=== PATIENT | male | born 1940 | race Caucasian/White ===

== ENCOUNTER 2019-06-06 14:09 | Inpatient (IN) | payer MEDICARE, BC ==
[2019-06-06 15:46] LABS: BASOPHIL % 0.2 % (0.0-0.4); Basophil (Absolute #) 0.02 (0-0.4); Eosinophil % 0.4 % (0.00-5.0); Eosinophil (Absolute #) 0.04 (0-0.5); Granulocyte Absolute (ANC) 8.22 (1.4-6.9); Granulocytes % 81.3 % (36.0-66.0); Hematocrit 44.8 % (42-50); Hemoglobin 14.9 gm/dl (12.5-18.0); Lymphocyte (Absolute #) 0.97 (1.0-4.6); Lymphocytes % 9.6 % (24.0-44.0); Mean Cell Volume 100.4 fl (78-100); Mean Corpuscular Hemoglobin 33.4 pg (26-32); Mean Corpuscular Hgb Concent. 33.3 g/dl (32-36); Mean Platelet Volume 10.6 fl (6-9.5); Monocyte (Absolute #) 0.86 (0.0-1.3); Monocytes % 8.5 % (0.0-12.0); Platelet Count 188 K/mm3 (150-450); Red Blood Count 4.46 M/mm3 (4.1-5.6); Red Cell Distribution Width 13.4 % (11.5-14.0); White Blood Count 10.1 K/mm3 (4.0-10.5)
[2019-06-06 16:14] LABS: ALBUMIN 3.9 g/dL (3.5-5.0); BILIRUBIN,TOTAL 0.6 mg/dL (0.2-1.3); Calcium 9.7 mg/dL (8.4-10.2); Creatinine 1 1.55 mg/dL (0.66-1.25); Potassium 4.3 mmol/L (3.5-5.1); Total Protein 6.5 g/dL (6.3-8.2)
[2019-06-06] MEDS ORDERED: Unasyn 3GM / NaCl 100ML 3 GM/100 ML IVPB IV STA (16:44)
[2019-06-06] MEDS ORDERED: Sodium Chloride 0.9% 1000 ML 1,000 ML ONE (16:49)
[2019-06-06] MEDS ORDERED: Unasyn 3GM / NaCl 100ML 3 GM/100 ML IVPB ONE (16:49)
[2019-06-06] MEDS ORDERED: Sodium Chloride 0.9% 1000 ML 1,000 ML IV SCH (17:00)
--- NOTE | 2019-06-06 17:15 | ERPHSYRPT ---
- History of Present Illness Source: patient, family Exam Limitations: no limitations Patient Subjective Stated Complaint: Fell yesterday at home and laid there for 4 hours because he couldn't move and his cell phone was under him, bilateral sides of pelvis hurt, hx of bilateral hip replacements, hx of lower back surgery , back is bothering him today, went to the clinic last week and was diagnosed with bronchitis and he has been on Doxycycline since then but he states that he is feeling worse Triage Nursing Assessment: Wheezes in right lower lobe, swelling to left knee, rug burn to left knee, unproductive cough, pulses normal, rates pain 10/10 in back and pelvis Physician History: Pt is an 78 y/o male that fell yesterday at home, and was lying on his side, with his cell phone underneath him, till his son found him. The pt complains of pain in his hips, and pelvis, and his L knee. He is coughing, and wheezing, and at this point, he is not able to ambulate. Pt denies N/V?D or abdominal pain. No chest pain or palpitations. No F/C/S. Timing/Duration: yesterday Severity: moderate Modifying Factors: Improves With: immobilization, medication Associated Symptoms: cough Allergies/Adverse Reactions: No Known Drug Allergies Allergy (Verified 06/06/19 15:08) Home Medications: Carbidopa/Levodopa 25/100 mg [Sinemet 25/100 MG] 1 tab PO QID 06/06/19 [ History] Entacapone 200 mg PO QID 06/06/19 [History] Pramipexole Di-HCl 0.5 mg [Mirapex 0.5 MG Tablet] 0.5 mg PO TID 06/06/19 [ History] Simvastatin 20Mg [Zocor 20Mg] 20 mg PO DAILY 06/06/19 [History] Triamterene/Hydrochlorothiazid [Triamterene-Hctz 37.5-25 mg Tb] 1 each PO DAILY 06/06/19 [History] - Review of Systems Constitutional: Lethargy, Weakness Eyes: No Symptoms Ears, Nose, & Throat: No Symptoms Respiratory: Cough, Wheezing Cardiac: No Chest Pain, No Edema, No Syncope Abdominal/Gastrointestinal: No Abdominal Pain, No Nausea, No Vomiting, No Diarrhea Musculoskeletal: Back Pain, Joint Pain, Joint Swelling Skin: No Rash Neurological: Gait Changes - Past Medical History Pertinent Past Medical History: Yes Neurological History: Other Cardiac History: High Cholesterol, Hypertension Respiratory History: No Pertinent History Endocrine Medical History: No Pertinent History Musculoskeletal History: Osteoarthritis Other Medical History: B hip LOIS, back surgery, Neck surgery, Gallbladder surgery. - Past Surgical History Past Surgical History: Yes Gastrointestinal: Cholecystectomy Musculoskeletal: Joint Replacement, Orthopedic Surgery - Social History Smoking Status: Former smoker Exposure to second hand smoke: No Drug Use: none Patient Lives Alone: Yes - Nursing Vital Signs Nursing Vital Signs: Initial Vital Signs Temperature 98.5 F 06/06/19 14:55 Pulse Rate 77 06/06/19 14:55 Blood Pressure 127/89 06/06/19 14:55 O2 Sat by Pulse Oximetry 98 06/06/19 14:55 Pain Scale Pain Intensity 8 - Physical Exam General Appearance: moderate distress Eye Exam: PERRL/EOMI, eyes nml inspection Ears, Nose, Throat Exam: normal ENT inspection, TMs normal, pharynx normal, moist mucous membranes Neck Exam: normal inspection, non-tender, supple, full range of motion Respiratory Exam: wheezing Cardiovascular Exam: regular rate/rhythm, normal heart sounds, normal peripheral pulses Gastrointestinal/Abdomen Exam: soft, normal bowel sounds, No tenderness, No mass Extremity Exam: pelvis stable, joint swelling (L knee) Neurologic Exam: alert, oriented x 3, cooperative, normal mood/affect, nml cerebellar function, nml station & gait, sensation nml, No motor deficits SpO2 Interpretation: normal SpO2: 98 O2 Delivery: Room Air - Course Nursing assessment & vital signs reviewed: Yes - Radiology Exams Hip X-ray Interpretation: Teleradiologist Report (No acute osseous abnormality) Chest X-ray Interpretation: Teleradiologist Report (Minor opacity of the lingula, small developing infiltrate) Left Knee X-ray Interpretation: Teleradiologist Report (No acute osseous abnormality) Ordered Tests: Active Orders 24 hr Category Date Time Status IV Insertion STAT Care 06/06/19 16:59 Active CHEST 1 VIEW (PORTABLE) Stat Exams 06/06/19 15:16 Taken HIP JEREMY (4V) INCL PELV IF DONE Stat Exams 06/06/19 15:24 Ordered HIP UNI (2V) INCL PEL IF DONE Stat Exams 06/06/19 Ordered KNEE (3 VIEWS) Stat Exams 06/06/19 15:23 Taken PELVIS (1 OR 2 VIEWS) Stat Exams 06/06/19 15:23 Ordered BNP [NT PRO BNP] Stat Lab 06/06/19 15:43 Completed CBC W DIFF Stat Lab 06/06/19 15:43 Completed CK (IN-HOUSE) [CK-Creatinine Phosphokinase] Stat Lab 06/06/19 15:43 Completed CMP Stat Lab 06/06/19 15:43 Completed Medication Summary Generic Name Dose Route Start Last Admin Trade Name Freq PRN Reason Stop Dose Admin Ampicillin Sodium/Sulbactam Sodium 3 gm in 100 mls @ 200 mls/hr 06/06/19 16: 44 06/06/19 16:56 Unasyn 3gm / Nacl 100ml IV 06/06/19 17:13 200 ml/hr STAT STA 200 mls/hr Administration Sodium Chloride 1,000 mls @ 100 mls/hr 06/06/19 17:00 06/06/19 16:55 Sodium Chloride 0.9% 1000 Ml IV 07/06/19 16:59 100 mls/hr .Q10H ROLAND Administration Discontinued Medications Generic Name Dose Route Start Last Admin Trade Name Freq PRN Reason Stop Dose Admin Ampicillin Sodium/Sulbactam Sodium Confirm 06/06/19 16:49 Unasyn 3gm / Nacl 100ml Administered 06/06/19 16:50 Dose 3 gm in 100 mls @ ud .[facility]OUTE .[facility] Lab/Rad Data: Laboratory Result Diagrams 06/06/19 15:43 06/06/19 15:43 Laboratory Results 06/06/19 06/06/19 06/06/19 Range/Units 15:43 15:43 15:43 WBC 10.1 (4.0-10.5) K/mm3 RBC 4.46 (4.1-5.6) M/mm3 Hgb 14.9 (12.5-18.0) gm/dl Hct 44.8 (42-50) % MCV 100.4 H (78-100) fl MCH 33.4 H (26-32) pg MCHC 33.3 (32-36) g/dl RDW 13.4 (11.5-14.0) % Plt Count 188 (150-450) K/mm3 MPV 10.6 H (6-9.5) fl Gran % 81.3 H (36.0-66.0) % Eos # (Auto) 0.04 (0-0.5) Absolute Lymphs (auto) 0.97 L (1.0-4.6) Absolute Monos (auto) 0.86 (0.0-1.3) Lymphocytes % 9.6 L (24.0-44.0) % Monocytes % 8.5 (0.0-12.0) % Eosinophils % 0.4 (0.00-5.0) % Basophils % 0.2 (0.0-0.4) % Absolute Granulocytes 8.22 H (1.4-6.9) Basophils # 0.02 (0-0.4) Sodium 138 (137-145) mmol/L Potassium 4.3 (3.5-5.1) mmol/L Chloride 104 (98-107) mmol/L Carbon Dioxide 27 (22-30) mmol/L Anion Gap 11.0 (5-15) MEQ/L BUN 42 H (9-20) mg/dL Creatinine 1.55 H (0.66-1.25) mg/dL Estimated GFR 46.1 ML/MIN Glucose 91 (74-106) mg/dL Calcium 9.7 (8.4-10.2) mg/dL Total Bilirubin 0.60 (0.2-1.3) mg/dL AST 314 H (17-59) U/L ALT 8 (0-50) U/L Alkaline Phosphatase 109 (38-126) U/L Creatine Kinase 8865 H (55-170) U/L NT-Pro-B Natriuret Pep 230 (0-1800) pg/mL Serum Total Protein 6.5 (6.3-8.2) g/dL Albumin 3.9 (3.5-5.0) g/dL - Progress Progress: unchanged Progress Note: 06/06/19 17:18 Pt was seen and examined. He is very deconditioned and is not able to ambulate on his own. Pt developed Rhabdo while lying on the floor, and now his CK is elevated and his sCr is elevated as well. Pt was started on IVF at 100ml/hr, secondary to his age. On CXR pt has infiltrate, probably secondary to aspiration, and Unasyn was started. Dr Calderon was contacted, and she accepted pt for admission. Discussed with : Hernan Will see patient in: hospital (full admit) - Departure Departure Disposition: In-patient Admission Clinical Impression: Rhabdomyolysis Condition: Stable Critical Care Time: No Referrals: BECK DEAN MD [Primary Care Provider] - Additional Instructions: Pt will be admitted to the hospital, with Rhabdo and aspiration PNA, and MODE. Dr Calderon accepted.
[2019-06-06] MEDS ORDERED: DUONEB 0.5-3 MG/3 ml Neb IH PRN (17:23)
[2019-06-06] MEDS ORDERED: Zofran 4 MG/2 ML VIAL IV PRN (17:23)
[2019-06-06] MEDS ORDERED: ULTRAM 50 MG PO ONE (17:30)
[2019-06-06] MEDS ORDERED: ULTRAM 50 MG ONE (17:32)
[2019-06-06 18:57] LABS: Appearance CLEAR (CLEAR); Bilirubin NEGATIVE (NEGATIVE); Blood SMALL Ery/ul (0-5); Glucose NEGATIVE (NEGATIVE); Ketones NEGATIVE (NEGATIVE); Leukocyte Esterase NEGATIVE (NEGATIVE); Mucus SLIGHT /HPF (NEGATIVE); Nitrite NEGATIVE (NEGATIVE); Protein,Urine Dip NEGATIVE (Negative); Urobilinogen NEGATIVE mg/dL (0-1)
[2019-06-06] MEDS: Unasyn 3GM / NaCl 100ML 3 GM/100 ML IVPB IV SCH (19:32)
--- NOTE | 2019-06-06 19:33 | XRAY ---
Indication: Short of breath. Status post fall. Comparison: None Portable chest demonstrates cardiomegaly with tortuous descending aorta. Query lingula infiltrate versus atelectasis. Remaining lungs are clear. Bony thorax intact with mild degenerative changes in lower cervical fusion hardware. Impression: Cardiomegaly. Query lingula infiltrate versus atelectasis. Comment: Preliminary interpretation was made by [facility]. No discrepancy.
--- NOTE | 2019-06-06 19:35 | XRAY ---
Indication: Pain following fall. Comparison: None 3 views of the left knee demonstrates mild osteopenia, medial/lateral degenerative chondrocalcinosis, medial joint space narrowing, fabella, and vascular calcifications. No other bony, articular, or soft tissue abnormalities. Comment: Preliminary interpretation was made by [facility]. No discrepancy.
[2019-06-06] MEDS: ZOCOR 20MG PO SCH (22:24)
[2019-06-06] MEDS: Sinemet 25/100 MG PO SCH (22:25)
[2019-06-06] MEDS: Mirapex 0.5 MG Tablet PO SCH (22:25)
[2019-06-06] MEDS: Ambien 5 MG Tablet PO PRN (22:35)
[2019-06-06 23:02] LABS: ANION GAP 7.3 MEQ/L (5-15); Calcium 8.9 mg/dL (8.4-10.2); Creatinine 1 1.41 mg/dL (0.66-1.25); Potassium 3.7 mmol/L (3.5-5.1)
[2019-06-07] MEDS: Unasyn 3GM / NaCl 100ML 3 GM/100 ML IVPB IV SCH ×4 (01:25→18:24)
[2019-06-07] MEDS: Sodium Chloride 0.9% 1000 ML 1,000 ML IV SCH ×2 (01:26→10:30)
[2019-06-07 04:48] LABS: BASOPHIL % 0.1 % (0.0-0.4); Basophil (Absolute #) 0.01 (0-0.4); Eosinophil (Absolute #) 0.07 (0-0.5); Granulocyte Absolute (ANC) 5.24 (1.4-6.9); Granulocytes % 78.3 % (36.0-66.0); Hematocrit 42.9 % (42-50); Hemoglobin 14.3 gm/dl (12.5-18.0); Lymphocyte (Absolute #) 0.83 (1.0-4.6); Lymphocytes % 12.4 % (24.0-44.0); Mean Cell Volume 101.2 fl (78-100); Mean Corpuscular Hemoglobin 33.7 pg (26-32); Mean Corpuscular Hgb Concent. 33.3 g/dl (32-36); Mean Platelet Volume 10.9 fl (6-9.5); Monocyte (Absolute #) 0.55 (0.0-1.3); Monocytes % 8.2 % (0.0-12.0); Platelet Count 153 K/mm3 (150-450); Red Blood Count 4.24 M/mm3 (4.1-5.6); Red Cell Distribution Width 13.2 % (11.5-14.0); White Blood Count 6.7 K/mm3 (4.0-10.5)
[2019-06-07 05:07] LABS: ALBUMIN 3.4 g/dL (3.5-5.0); ANION GAP 8.3 MEQ/L (5-15); BILIRUBIN,TOTAL 0.6 mg/dL (0.2-1.3); Calcium 8.9 mg/dL (8.4-10.2); Creatinine 1 1.31 mg/dL (0.66-1.25); Potassium 3.8 mmol/L (3.5-5.1)
[2019-06-07 05:16] LABS: TROPONIN 0.065 ng/mL (0.000-0.034)
[2019-06-07] MEDS ORDERED: Unasyn 3GM / NaCl 100ML 3 GM/100 ML IVPB ONE (06:01)
[2019-06-07] MEDS: Mirapex 0.5 MG Tablet PO SCH ×3 (07:44→17:05)
[2019-06-07] MEDS: Sinemet 25/100 MG PO SCH ×4 (07:44→21:50)
[2019-06-07] MEDS: TYLENOL 325 MG PO PRN ×2 (07:47→12:11)
[2019-06-07] MEDS ORDERED: MEDICATION INTERVENTION PO SCH (08:15)
[2019-06-07] MEDS ORDERED: NON-FORMULARY ITEM (Multivitamin [Multi-Vitamin Daily] 1 EACH) PO SCH (10:00)
[2019-06-07] MEDS: PROTONIX 40 MG IV IV SCH (10:26)
[2019-06-07] MEDS: THERAGRAN MULTIVITAMIN PO SCH (10:26)
[2019-06-07] MEDS: ECOTRIN 81 MG PO SCH (10:29)
[2019-06-07] MEDS: ENOXAPARIN SODIUM SQ SCH (10:35)
--- NOTE | 2019-06-07 11:38 | PCM.NOTE ---
Date and Time: 06/07/19 1133 Subjective Assessment: Patient reports some continued pain in his legs and pelvis. He is not sure if he would be able to walk. He does feel better sitting up in a chair. He continues to have a cough. His son notes that he will be seeing Dr. Kamaljit Caro , industrial health engineer in July. - Review of Systems Constitutional: Fatigue Eyes: No Symptoms Ears, Nose, & Throat: No Symptoms Respiratory: Cough Cardiac: No Chest Pain Abdominal/Gastrointestinal: No Abdominal Pain Musculoskeletal: Myalgias Skin: Other (skin tear on left knee) Objective Exam General Appearance: no apparent distress, other (son at bedside) Neurologic Exam: alert, cooperative Skin Exam: normal color, warm, dry, other (dressing over scrape on left lower leg) Respiratory Exam: normal breath sounds, lungs clear, other (+ cough) Cardiovascular Exam: regular rate/rhythm, normal heart sounds, No murmur, No friction rub, No gallop Gastrointestinal/Abdomen Exam: soft, normal bowel sounds, No tenderness, No distention, No mass Extremity Exam: other (trace edema, no c/c) OBJECTIVE DATA Vital Signs: Vital Signs - 24 hr Temp Pulse Resp BP Pulse Ox 06/07/19 07:42 97.8 F 68 20 100/64 95 06/07/19 04:12 97.7 F 70 21 101/60 94 L 06/07/19 04:00 21 06/07/19 00:00 18 06/06/19 23:37 98.1 F 67 18 97/53 96 06/06/19 21:53 82 20 95 06/06/19 20:00 98.5 F 80 20 141/83 98 06/06/19 18:34 98.5 F 80 20 141/83 98 06/06/19 17:23 98 06/06/19 17:05 80 18 146/92 98 06/06/19 14:55 98.5 F 77 127/89 98 Pain Assessment - Last Documented Pain Intensity 0 Pain Scale Used 0-10 Pain Scale Intake and Output: Intake & Output 06/05/19 06/06/19 06/07/19 06/08/19 06:59 06:59 06:59 06:59 Intake Total 1407 360 Output Total 1175 300 Balance 232 60 Weight 84 kg Lab Results: Lab Results-Last 24 Hours 0806/06/19 06/06/19 Range/Units 15:43 15:43 15:43 WBC 10.1 (4.0-10.5) K/mm3 RBC 4.46 (4.1-5.6) M/mm3 Hgb 14.9 (12.5-18.0) gm/dl Hct 44.8 (42-50) % MCV 100.4 H (78-100) fl MCH 33.4 H (26-32) pg MCHC 33.3 (32-36) g/dl RDW 13.4 (11.5-14.0) % Plt Count 188 (150-450) K/mm3 MPV 10.6 H (6-9.5) fl Gran % 81.3 H (36.0-66.0) % Eos # (Auto) 0.04 (0-0.5) Absolute Lymphs (auto) 0.97 L (1.0-4.6) Absolute Monos (auto) 0.86 (0.0-1.3) Lymphocytes % 9.6 L (24.0-44.0) % Monocytes % 8.5 (0.0-12.0) % Eosinophils % 0.4 (0.00-5.0) % Basophils % 0.2 (0.0-0.4) % Absolute Granulocytes 8.22 H (1.4-6.9) Basophils # 0.02 (0-0.4) Sodium 138 (137-145) mmol/L Potassium 4.3 (3.5-5.1) mmol/L Chloride 104 (98-107) mmol/L Carbon Dioxide 27 (22-30) mmol/L Anion Gap 11.0 (5-15) MEQ/L BUN 42 H (9-20) mg/dL Creatinine 1.55 H (0.66-1.25) mg/dL Estimated GFR 46.1 ML/MIN Glucose 91 (74-106) mg/dL Calcium 9.7 (8.4-10.2) mg/dL Total Bilirubin 0.60 (0.2-1.3) mg/dL AST 314 H (17-59) U/L ALT 8 (0-50) U/L Alkaline Phosphatase 109 (38-126) U/L Creatine Kinase 8865 H (55-170) U/L Troponin I (0.000-0.034) ng/mL NT-Pro-B Natriuret Pep 230 (0-1800) pg/mL Serum Total Protein 6.5 (6.3-8.2) g/dL Albumin 3.9 (3.5-5.0) g/dL Urine Color (YELLOW) Urine Appearance (CLEAR) Urine pH (5-6) Ur Specific Boyle (1.005-1.025) Urine Protein (Negative) Urine Ketones (NEGATIVE) Urine Blood (0-5) Cristian/ul Urine Nitrite (NEGATIVE) Urine Bilirubin (NEGATIVE) Urine Urobilinogen (0-1) mg/dL Ur Leukocyte Esterase (NEGATIVE) Urine WBC (Auto) (0-5) /HPF Urine RBC (Auto) (0-2) /HPF U Epithel Cells (Auto) (FEW) /HPF Urine Bacteria (Auto) (NEGATIVE) /HPF Urine Mucus (Auto) (NEGATIVE) /HPF Urine Culture Reflexed (NO) Urine Glucose (NEGATIVE) mg/dL 06/06/19 06/06/19 06/06/19 Range/Units 17:43 20:30 21:40 WBC (4.0-10.5) K/mm3 RBC (4.1-5.6) M/mm3 Hgb (12.5-18.0) gm/dl Hct (42-50) % MCV (78-100) fl MCH (26-32) pg MCHC (32-36) g/dl RDW (11.5-14.0) % Plt Count (150-450) K/mm3 MPV (6-9.5) fl Gran % (36.0-66.0) % Eos # (Auto) (0-0.5) Absolute Lymphs (auto) (1.0-4.6) Absolute Monos (auto) (0.0-1.3) Lymphocytes % (24.0-44.0) % Monocytes % (0.0-12.0) % Eosinophils % (0.00-5.0) % Basophils % (0.0-0.4) % Absolute Granulocytes (1.4-6.9) Basophils # (0-0.4) Sodium 138 (137-145) mmol/L Potassium 3.7 (3.5-5.1) mmol/L Chloride 107 (98-107) mmol/L Carbon Dioxide 28 (22-30) mmol/L Anion Gap 7.3 (5-15) MEQ/L BUN 39 H (9-20) mg/dL Creatinine 1.41 H (0.66-1.25) mg/dL Estimated GFR 51.4 ML/MIN Glucose 99 (74-106) mg/dL Calcium 8.9 (8.4-10.2) mg/dL Total Bilirubin (0.2-1.3) mg/dL AST (17-59) U/L ALT (0-50) U/L Alkaline Phosphatase (38-126) U/L Creatine Kinase 5246 H (55-170) U/L Troponin I 0.085 H* (0.000-0.034) ng/mL NT-Pro-B Natriuret Pep (0-1800) pg/mL Serum Total Protein (6.3-8.2) g/dL Albumin (3.5-5.0) g/dL Urine Color YELLOW (YELLOW) Urine Appearance CLEAR (CLEAR) Urine pH 5.0 (5-6) Ur Specific Boyle 1.010 (1.005-1.025) Urine Protein NEGATIVE (Negative) Urine Ketones NEGATIVE (NEGATIVE) Urine Blood SMALL (0-5) Cristian/ul Urine Nitrite NEGATIVE (NEGATIVE) Urine Bilirubin NEGATIVE (NEGATIVE) Urine Urobilinogen NEGATIVE (0-1) mg/dL Ur Leukocyte Esterase NEGATIVE (NEGATIVE) Urine WBC (Auto) NONE (0-5) /HPF Urine RBC (Auto) NONE (0-2) /HPF U Epithel Cells (Auto) NONE (FEW) /HPF Urine Bacteria (Auto) NONE (NEGATIVE) /HPF Urine Mucus (Auto) SLIGHT (NEGATIVE) /HPF Urine Culture Reflexed NO (NO) Urine Glucose NEGATIVE (NEGATIVE) mg/dL 06/07/19 06/07/19 06/07/19 Range/Units 01:25 04:45 04:45 WBC 6.7 (4.0-10.5) K/mm3 RBC 4.24 (4.1-5.6) M/mm3 Hgb 14.3 (12.5-18.0) gm/dl Hct 42.9 (42-50) % MCV 101.2 H (78-100) fl MCH 33.7 H (26-32) pg MCHC 33.3 (32-36) g/dl RDW 13.2 (11.5-14.0) % Plt Count 153 (150-450) K/mm3 MPV 10.9 H (6-9.5) fl Gran % 78.3 H (36.0-66.0) % Eos # (Auto) 0.07 (0-0.5) Absolute Lymphs (auto) 0.83 L (1.0-4.6) Absolute Monos (auto) 0.55 (0.0-1.3) Lymphocytes % 12.4 L (24.0-44.0) % Monocytes % 8.2 (0.0-12.0) % Eosinophils % 1.0 (0.00-5.0) % Basophils % 0.1 (0.0-0.4) % Absolute Granulocytes 5.24 (1.4-6.9) Basophils # 0.01 (0-0.4) Sodium 139 (137-145) mmol/L Potassium 3.8 (3.5-5.1) mmol/L Chloride 108 H (98-107) mmol/L Carbon Dioxide 27 (22-30) mmol/L Anion Gap 8.3 (5-15) MEQ/L BUN 34 H (9-20) mg/dL Creatinine 1.31 H (0.66-1.25) mg/dL Estimated GFR 56.0 ML/MIN Glucose 84 (74-106) mg/dL Calcium 8.9 (8.4-10.2) mg/dL Total Bilirubin 0.60 (0.2-1.3) mg/dL AST 216 H (17-59) U/L ALT 9 (0-50) U/L Alkaline Phosphatase 88 (38-126) U/L Creatine Kinase 2928 H (55-170) U/L Troponin I 0.070 H* 0.065 H* (0.000-0.034) ng/mL NT-Pro-B Natriuret Pep (0-1800) pg/mL Serum Total Protein 6.0 L (6.3-8.2) g/dL Albumin 3.4 L (3.5-5.0) g/dL Urine Color (YELLOW) Urine Appearance (CLEAR) Urine pH (5-6) Ur Specific Boyle (1.005-1.025) Urine Protein (Negative) Urine Ketones (NEGATIVE) Urine Blood (0-5) Cristian/ul Urine Nitrite (NEGATIVE) Urine Bilirubin (NEGATIVE) Urine Urobilinogen (0-1) mg/dL Ur Leukocyte Esterase (NEGATIVE) Urine WBC (Auto) (0-5) /HPF Urine RBC (Auto) (0-2) /HPF U Epithel Cells (Auto) (FEW) /HPF Urine Bacteria (Auto) (NEGATIVE) /HPF Urine Mucus (Auto) (NEGATIVE) /HPF Urine Culture Reflexed (NO) Urine Glucose (NEGATIVE) mg/dL Radiology Exams: Radiology Procedures Category Date Time Status CHEST 1 VIEW (PORTABLE) Stat Exams 06/06/19 15:16 Completed HIP JEREMY (4V) INCL PELV IF DONE Stat Exams 06/06/19 15:24 Taken KNEE (3 VIEWS) Stat Exams 06/06/19 15:23 Completed Assessment/Plan (1) Rhabdomyolysis Current Visit: Yes Status: Acute Assessment & Plan: CPK is improving. Will continue IV fluids but decrease to 100 mL hour at this time. Will ask for PT consult for pain and gait instability. Recheck CPK in AM. Code(s): M62.82 - RHABDOMYOLYSIS (2) Elevated troponin Current Visit: Yes Status: Acute Assessment & Plan: The peak was the first troponin that was checked. No chest pain now. Discussed with Dr. Davis who is covering for patient's bird keeper who is Dr. Archibald. He thinks this is most likely due to demand ischemia because of the Rhabdo. He suggests a tele cardiology consult if patient is still her Saturday or to follow up with Dr. rAchibald as an outpatient very soon if he is discharged tomorrow. He will need a full cardiac work up once he is stable. He did not think more troponins need to be checked as peak has been documented. Continue daily aspirin. Code(s): R74.8 - ABNORMAL LEVELS OF OTHER SERUM ENZYMES (3) Pneumonia Current Visit: Yes Status: Acute Assessment & Plan: Continue with IV antibiotics. Code(s): J18.9 - PNEUMONIA, UNSPECIFIED ORGANISM (4) Acute kidney injury Current Visit: Yes Status: Acute Assessment & Plan: Creatinine has improved slightly. Continue to monitor. Code(s): N17.9 - ACUTE KIDNEY FAILURE, UNSPECIFIED (5) Parkinson disease Current Visit: Yes Status: Acute Assessment & Plan: Continue home medication. He sees Dr. Ruthie Brown as outpatient. Code(s): G20 - PARKINSON'S DISEASE (6) Hypertension Current Visit: Yes Status: Acute Assessment & Plan: Currently holding his antihypertensives due to low normal blood pressure. Code(s): I10 - ESSENTIAL (PRIMARY) HYPERTENSION (7) Hyperlipidemia Current Visit: Yes Status: Acute Assessment & Plan: Continue statin. Code(s): E78.5 - HYPERLIPIDEMIA, UNSPECIFIED (8) Skin tear of left lower leg without complication Current Visit: Yes Status: Acute Code(s): S81.812A - LACERATION WITHOUT FOREIGN BODY, LEFT LOWER LEG, INIT ENCNTR (9) Gait instability Current Visit: Yes Status: Acute Assessment & Plan: PT consult. Code(s): R26.81 - UNSTEADINESS ON FEET
[2019-06-07] MEDS: ZOCOR 20MG PO SCH (21:50)
[2019-06-07] MEDS: Ambien 5 MG Tablet PO PRN (21:52)
[2019-06-08] MEDS: Unasyn 3GM / NaCl 100ML 3 GM/100 ML IVPB IV SCH ×4 (02:56→16:37)
[2019-06-08] MEDS: MORPHINE SULFATE 2 MG INJ IV PRN ×4 (03:52→21:37)
[2019-06-08 06:02] LABS: ANION GAP 8.6 MEQ/L (5-15); BLOOD UREA NITROGEN 25 mg/dL (9-20); CHLORIDE 110 mmol/L (98-107); CK-Creatinine Phosphokinase 1097 U/L (55-170); Calcium 9.2 mg/dL (8.4-10.2); Carbon Dioxide 27 mmol/L (22-30); Glucose 84 mg/dL (74-106); SODIUM 142 mmol/L (137-145)
[2019-06-08] MEDS: THERAGRAN MULTIVITAMIN PO SCH (08:23)
[2019-06-08] MEDS: Sinemet 25/100 MG PO SCH ×4 (08:23→21:39)
[2019-06-08] MEDS: Mirapex 0.5 MG Tablet PO SCH ×3 (08:23→16:37)
[2019-06-08] MEDS: ECOTRIN 81 MG PO SCH (08:23)
[2019-06-08] MEDS: PROTONIX 40 MG IV IV SCH (08:26)
[2019-06-08] MEDS: ENOXAPARIN SODIUM SQ SCH (08:29)
--- NOTE | 2019-06-08 12:29 | PCM.NOTE ---
Date and Time: 06/08/19 1219 Subjective Assessment: Patient is up in chair . Daughter in law at the bedside. Patient states he used the rollater to get to the bathroom with nurse along side. Is painful to move hips while walking.Is in pain across low back/hips sitting also and when in bed. 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 Dtr in law assures him the yards are taken care of. Discussed Rehab to prevent further falls. He says he will talk to Dr Calderon tomorrow about this. Objective Exam General Appearance: mild distress (not comfortable sitting -needs pillow or donut) Neurologic Exam: alert, oriented x 3 Skin Exam: normal color, warm, dry, abrasion (left knee denuded skin large area , dressed with telfa some odor and small amount light yellow discharge) Cardiovascular Exam: edema (trace pitting pretibial,no calf tenderness), other ( distant heart sounds regular) Back Exam: other (HIP and Left Knee xray -no acute fracture or dislocation.) OBJECTIVE DATA Vital Signs: Vital Signs - 24 hr Temp Pulse Resp BP Pulse Ox 06/08/19 11:53 98.4 F 76 20 123/72 96 06/08/19 08:00 98.2 F 72 20 145/78 96 06/08/19 04:00 98.5 F 72 20 134/84 96 06/08/19 03:50 20 06/08/19 00:00 20 06/07/19 23:51 98.7 F 57 L 20 123/54 96 06/07/19 21:04 67 16 92 L 06/07/19 20:00 20 06/07/19 19:48 98.4 F 68 16 111/53 95 06/07/19 16:00 98 F 74 20 102/60 96 06/07/19 12:21 98.2 F 68 20 101/58 95 Pain Assessment - Last Documented Pain Intensity 9 Pain Scale Used 0-10 Pain Scale Intake and Output: Intake & Output 06/06/19 06/07/19 06/08/19 06/09/19 11:59 11:59 11:59 11:59 Intake Total 1651 0222 Output Total 7247 0450 Balance 292 -2038 Weight 84 kg Lab Results: Lab Results-Last 24 Hours 06/08/19 Range/Units 05:20 Sodium 142 (137-145) mmol/L Potassium 4.0 (3.5-5.1) mmol/L Chloride 110 H (98-107) mmol/L Carbon Dioxide 27 (22-30) mmol/L Anion Gap 8.6 (5-15) MEQ/L BUN 25 H (9-20) mg/dL Creatinine 1.10 (0.66-1.25) mg/dL Estimated GFR > 60.0 ML/MIN Glucose 84 (74-106) mg/dL Calcium 9.2 (8.4-10.2) mg/dL Creatine Kinase 1097 H (55-170) U/L Radiology Exams: Radiology Procedures Category Date Time Status CHEST 1 VIEW (PORTABLE) Stat Exams 06/06/19 15:16 Completed HIP JEREMY (4V) INCL PELV IF DONE Stat Exams 06/06/19 15:24 Taken KNEE (3 VIEWS) Stat Exams 06/06/19 15:23 Completed Multi-Disciplinary Progress Notes: Multi-Disciplinary Progress Notes 06/08/19 09:26 Case Management Note by Daja Chung VISITED WITH PT AND SON REGARDING NEEDS ON DISCHARGE. PT/SON REPORT THAT PT IS STILL DRIVING - USES WALKER TO AMBULATE - NORMALLY INDEPENDENT WITH ALL ADL'S. PT HAS PARKINSON'S, HAVING PAIN FROM FALL, AND IS WEAK. DISCUSSED DISCHARGE OPTIONS: HOME WITH HHC SERVICES VS SNF REHAB STAY ON DISCHARGE. PT IS RELUCTANT TO EITHER. ENCOURAGED TO TALK WITH SON. DISCUSSED THAT THIS [employer]ONRY INSTALLER WOULD VISIT WITH PT AGAIN TOMORROW. Initialized on 06/08/19 09:26 - END OF NOTE Assessment/Plan (1) Hip pain, bilateral Current Visit: Yes Status: Acute Assessment & Plan: S?P remote hip replacements with acute pain due to fall-xrays neg for acute changes Code(s): M25.551 - PAIN IN RIGHT HIP; M25.552 - PAIN IN LEFT HIP (2) Rhabdomyolysis Current Visit: Yes Status: Acute Code(s): M62.82 - RHABDOMYOLYSIS (3) Acute kidney injury Current Visit: Yes Status: Acute Assessment & Plan: labs improving Code(s): N17.9 - ACUTE KIDNEY FAILURE, UNSPECIFIED (4) Rhabdomyolysis Current Visit: Yes Status: Acute Qualifiers: Rhabdomyolysis type: traumatic Encounter type: subsequent encounter Qualified Code(s): T79.6XXD - Traumatic ischemia of muscle, subsequent encounter Assessment & Plan: improving CK was 5000+ on admission ,today 1000+ Code(s): M62.82 - RHABDOMYOLYSIS (5) Abrasion, left knee, subsequent encounter Current Visit: Yes Status: Acute Assessment & Plan: odor today with light discharge-do culture sens and wound care daily Code(s): S80.212D - ABRASION, LEFT KNEE, SUBSEQUENT ENCOUNTER (6) Hip pain, bilateral Current Visit: Yes Status: Acute Assessment & Plan: trouble getting comfortable - try air flow mattress,reeval pain meds-was past due for his prn IV morphine-continue same but offer q 4 H. Code(s): M25.551 - PAIN IN RIGHT HIP; M25.552 - PAIN IN LEFT HIP
[2019-06-08] MEDS: DUONEB 0.5-3 MG/3 ml Neb IH SCH ×3 (14:04→19:55)
[2019-06-08] MEDS ORDERED: UNASYN IV SCH (18:00)
[2019-06-08] MEDS ORDERED: SODIUM CHLORIDE 0.9% IV SCH (18:00)
[2019-06-08] MEDS: Sodium Chloride 0.9% 1000 ML 1,000 ML IV SCH (19:27)
[2019-06-08] MEDS: Bactroban OINTMENT TP SCH (21:38)
[2019-06-08] MEDS: ZOCOR 20MG PO SCH (21:39)
[2019-06-09] MEDS: Unasyn 3GM / NaCl 100ML 3 GM/100 ML IVPB IV SCH ×4 (00:38→17:42)
[2019-06-09] MEDS: MORPHINE SULFATE 2 MG INJ IV PRN ×2 (03:32→08:07)
[2019-06-09 05:39] LABS: ANION GAP 8.8 MEQ/L (5-15); BLOOD UREA NITROGEN 21 mg/dL (9-20); CHLORIDE 113 mmol/L (98-107); CK-Creatinine Phosphokinase 494 U/L (55-170); Calcium 8.8 mg/dL (8.4-10.2); Carbon Dioxide 26 mmol/L (22-30); Creatinine 1 1.04 mg/dL (0.66-1.25); Glucose 88 mg/dL (74-106); Potassium 4.1 mmol/L (3.5-5.1); SODIUM 143 mmol/L (137-145)
[2019-06-09] MEDS: DUONEB 0.5-3 MG/3 ml Neb IH SCH ×3 (05:53→20:20)
[2019-06-09] MEDS: Tessalon Perles 100 MG PO PRN ×2 (07:39→16:31)
[2019-06-09] MEDS: PROTONIX 40 MG IV IV SCH ×2 (07:39→11:48)
[2019-06-09] MEDS: ENOXAPARIN SODIUM SQ SCH (07:39)
[2019-06-09] MEDS: Sinemet 25/100 MG PO SCH ×5 (07:40→21:43)
[2019-06-09] MEDS: Bactroban OINTMENT TP SCH (07:40)
[2019-06-09] MEDS: ECOTRIN 81 MG PO SCH (07:40)
[2019-06-09] MEDS: THERAGRAN MULTIVITAMIN PO SCH (07:40)
[2019-06-09] MEDS: Mirapex 0.5 MG Tablet PO SCH ×4 (07:40→16:32)
--- NOTE | 2019-06-09 07:50 | HP ---
HISTORY OF PRESENT ILLNESS: This is an 78 year-old patient of Dr. Wright who presented to the emergency department with a history of a fall yesterday. He states he tripped over a chair. He has a rug burn on his left knee. He reports that he landed with his right leg stretched out with his head leaning on the bed and was in that position for about four hours yesterday. He had been seen at [facility] last week for bronchitis and started on doxycycline 100 mg p.o. b.i.d. which he had been taking. He decided to come to the emergency room today as he reports he is having more trouble breathing and also because he was having some pain in his hips and pelvic area. He also reports that today he had some chest pain. He is unsure exactly how long it lasted. It was worse when he was lying on his side. He had some dyspnea with this. He has no history of coronary artery disease but does see Dr. Archibald. Also, no history of congestive heart failure. He reports he is urinating okay and denies any hematuria. REVIEW OF SYSTEMS: No nausea or vomiting. He has had a dry cough and fever yesterday with chills. No constipation. No diarrhea. Otherwise review of systems as noted in history of present illness. MEDICATIONS: Please see the home medication reconciliation form which I have reviewed. ALLERGIES: NKDA. PAST MEDICAL HISTORY: Parkinson's. Rheumatoid arthritis. Hypertension. Hyperlipidemia. PAST SURGICAL HISTORY: He had five hip replacements. He had one hip replacement and then bilateral hip replacement and after an accident had to have repeat hip replacements. He reports two hernia surgeries, back surgery and surgery for pinched nerve in his neck. SOCIAL HISTORY: He lives alone. He has family that lives nearby and checks on him frequently. No tobacco. No alcohol. FAMILY HISTORY: His father is and when he was 84. His mother is and had diabetes. PHYSICAL EXAMINATION: VITAL SIGNS: Temperature current 98.5F, temperature max 98.5F, heart rate 80, respiratory rate 20, blood pressure 141/83, weight 84.4 kg. Oxygen saturation 98% on room air. GENERAL: The patient is a pleasant talkative man with a mask-like facies lying in bed in no acute distress with his son, [id number] and grandson at the bedside. CVS: He has a regular rate and rhythm. No murmurs, gallops or rubs are appreciated. CHEST: He has a cough with deep breath. No crackles or wheezes are appreciated. No tachypnea. No retractions. ABDOMEN: Soft, nontender, nondistended with normal bowel sounds. EXTREMITIES: He has approximately 6 x 7 cm rug burn on his left knee. No clubbing or cyanosis. Trace edema in his lower extremities. I am unable to palpate dorsalis pedis or posterior tibial pulses bilaterally. He has good capillary refill. LABORATORY DATA AND TESTS: He was found to have a CPK of 8,865 in the emergency room. AST 214, creatinine 1.5. UA was small blood otherwise negative. He had multiple x-rays of his pelvis, knee, hip and chest that were all read as normal except for his chest read as cardiomegaly and questionable lingular infiltrate versus atelectasis. ASSESSMENT AND PLAN: 1) RHABDOMYOLYSIS: He has been started on fluids at 100 ml/hour. I have increased this to 125. I will be rechecking his CPK at 2100 hours tonight and will plan to recheck again in the morning also. 2) CHEST PAIN: I am going to check the troponin and then the troponin every four hours for a total of three. 3) PNEUMONIA: He has been started on Unasyn, will plan to continue with this and try to check a sputum culture. 4) ACUTE KIDNEY INJURY: Most likely due to the immobilization, will plan to recheck his creatinine in the morning. 5) PARKINSON'S: Will continue his home medications. 6) HYPERTENSION: I am holding his Maxzide but will continue his Toprol. 7) HYPERLIPIDEMIA: Will continue his statin. 8) SKIN TEAR: Will ask nursing to place a dressing on this.
--- NOTE | 2019-06-09 08:32 | PCM.NOTE ---
Date and Time: 06/09/19826 Subjective Assessment: Patient is aggravated about the timing of his Parkinson's medications. Head pharmacist, Jose, came in and discussed medications and reason for needing verification and patient and son's questions answered. Patient continues to have a cough and has trouble getting anything up with this cough. He has not had a stool since admit and states that it will come. He is reluctant but then agreeable to trying oral pain medication. He thinks a fall button would be a waste of money but will discuss further with his son. He is agreeable to home health but does not want to go to senior care for rehab. - Review of Systems Constitutional: Other (tremor; sleepy after parkinson's medication; hoarse voice , cough) Respiratory: Cough Abdominal/Gastrointestinal: Constipation, No Nausea, No Vomiting, No Diarrhea Genitourinary Symptoms: No Symptoms Musculoskeletal: Other (hip and pelvic pain) Objective Exam General Appearance: no apparent distress, alert, other (son at bed; resting tremor of left hand) Neurologic Exam: alert, cooperative, other (frustrated with medication situation ) Skin Exam: normal color, warm, other (bandage in place over left upper leg) Respiratory Exam: normal breath sounds, other (few rhonchi and cough with deep breath) Cardiovascular Exam: regular rate/rhythm, No murmur, No friction rub, No gallop Gastrointestinal/Abdomen Exam: soft, normal bowel sounds, distention, No tenderness, No mass, No guarding Extremity Exam: normal inspection, other (trace edema, no c/c) OBJECTIVE DATA Vital Signs: Vital Signs - 24 hr Temp Pulse Resp BP Pulse Ox 06/09/19 07:39 98.3 F 75 18 132/87 93 L 06/09/19 06:18 74 20 94 L 06/09/19 04:30 20 06/09/19 03:53 78 20 163/93 90 L 06/09/19 00:00 20 06/08/19 23:27 98.6 F 74 20 123/72 95 06/08/19 20:30 20 06/08/19 20:00 98.6 F 66 20 106/56 93 L 06/08/19 19:59 70 16 94 L 06/08/19 16:00 97.7 F 74 18 109/68 96 06/08/19 14:17 80 18 96 06/08/19 12:00 18 09/02/19 11:53 98.4 F 76 20 123/72 96 Pain Assessment - Last Documented Pain Intensity 10 Pain Scale Used 0-10 Pain Scale Intake and Output: Intake & Output 06/07/19 06/08/19 06/09/19 06/10/19 06:59 06:59 06:59 06:59 Intake Total 1407 1512 1620 Output Total 1175 3500 950 850 Balance 670 -850 Weight 84 kg 85.1 kg 85 kg Lab Results: Lab Results-Last 24 Hours 06/09/19 Range/Units 04:25 Sodium 143 (137-145) mmol/L Potassium 4.1 (3.5-5.1) mmol/L Chloride 113 H (98-107) mmol/L Carbon Dioxide 26 (22-30) mmol/L Anion Gap 8.8 (5-15) MEQ/L BUN 21 H (9-20) mg/dL Creatinine 1.04 (0.66-1.25) mg/dL Estimated GFR > 60.0 ML/MIN Glucose 88 (74-106) mg/dL Calcium 8.8 (8.4-10.2) mg/dL Creatine Kinase 494 H (55-170) U/L Multi-Disciplinary Progress Notes: Multi-Disciplinary Progress Notes 06/08/19 09:26 Case Management Note by Daja Chung VISITED WITH PT AND SON REGARDING NEEDS ON DISCHARGE. PT/SON REPORT THAT PT IS STILL DRIVING - USES WALKER TO AMBULATE - NORMALLY INDEPENDENT WITH ALL ADL'S. PT HAS PARKINSON'S, HAVING PAIN FROM FALL, AND IS WEAK. DISCUSSED DISCHARGE OPTIONS: HOME WITH C SERVICES VS SNF REHAB STAY ON DISCHARGE. PT IS RELUCTANT TO EITHER. ENCOURAGED TO TALK WITH SON. DISCUSSED THAT THIS IN SERVICE COORDINATOR WOULD VISIT WITH PT AGAIN TOMORROW. Initialized on 06/08/19 09:26 - END OF NOTE Assessment/Plan (1) Rhabdomyolysis Current Visit: Yes Status: Acute Qualifiers: Rhabdomyolysis type: traumatic Encounter type: subsequent encounter Qualified Code(s): T79.6XXD - Traumatic ischemia of muscle, subsequent encounter Assessment & Plan: Continue IV fluids, CPK continues to come down. Will recheck in AM. May be ready for discharge to home tomorrow if CPK is within normal limits. Code(s): M62.82 - RHABDOMYOLYSIS (2) Elevated troponin Current Visit: Yes Status: Acute Assessment & Plan: Will ask for tele cardiology consult today. I had also discussed his elevated troponin over the weekend with police inspector. Continue aspirin. Will need full work up as outpatient also through police inspector. Code(s): R74.8 - ABNORMAL LEVELS OF OTHER SERUM ENZYMES (3) Pneumonia Current Visit: Yes Status: Acute Assessment & Plan: Continue Unasyn; seems to be slowly improving. Code(s): J18.9 - PNEUMONIA, UNSPECIFIED ORGANISM (4) Acute kidney injury Current Visit: Yes Status: Resolved Assessment & Plan: resolved with IV fluids. Code(s): N17.9 - ACUTE KIDNEY FAILURE, UNSPECIFIED (5) Parkinson disease Current Visit: Yes Status: Acute Assessment & Plan: Continue home medication. Code(s): G20 - PARKINSON'S DISEASE (6) Hypertension Current Visit: Yes Status: Acute Code(s): I10 - ESSENTIAL (PRIMARY) HYPERTENSION (7) Hyperlipidemia Current Visit: Yes Status: Acute Assessment & Plan: Continue home medication. Code(s): E78.5 - HYPERLIPIDEMIA, UNSPECIFIED (8) Skin tear of left lower leg without complication Current Visit: Yes Status: Acute Assessment & Plan: Continue wound care; culture ordered yesterday by Dr. Richmond. Code(s): S81.812A - LACERATION WITHOUT FOREIGN BODY, LEFT LOWER LEG, INIT ENCNTR (9) Gait instability Current Visit: Yes Status: Acute Assessment & Plan: PT consult ordered Saturday. Would benefit from home health as he does not want rehab stay. Code(s): R26.81 - UNSTEADINESS ON FEET (10) Hypertension Current Visit: Yes Status: Acute Assessment & Plan: His blood pressure medication has been held due to low normal blood pressure. He may need a bp med started as he continues to improve from acute illness. Code(s): I10 - ESSENTIAL (PRIMARY) HYPERTENSION
--- NOTE | 2019-06-09 08:56 | XRAY ---
Indication: Pain following fall. Comparison: None AP pelvis and 2 views of the left hip demonstrates osteopenia, moderate low lumbar degenerative spondylosis, pelvic surgical clips/phleboliths, and bilateral total hip arthroplasty with intact bipolar prosthesis/acetabular screws and heterotopic ossifications. No other bony, articular, or soft tissue abnormalities. Comment: Preliminary interpretation was made by [facility]. No critical discrepancy.
[2019-06-09] MEDS ORDERED: Bactroban OINTMENT TP SCH (10:00)
[2019-06-09] MEDS ORDERED: PATIENT OWN MEDICATION PO SCH (10:00)
[2019-06-09] MEDS: Colace 100 MG PO SCH ×2 (11:46→21:43)
[2019-06-09] MEDS: SENOKOT 8.6 MG PO PRN (11:46)
[2019-06-09] MEDS: PATIENT OWN MEDICATION PO SCH ×4 (11:48→21:43)
[2019-06-09] MEDS: NORCO 5/325 MG PO PRN ×2 (16:31→21:41)
[2019-06-09] MEDS: ZOCOR 20MG PO SCH (21:43)
[2019-06-10] MEDS: Unasyn 3GM / NaCl 100ML 3 GM/100 ML IVPB IV SCH ×2 (00:20→05:44)
[2019-06-10] MEDS: NORCO 5/325 MG PO PRN ×2 (02:17→08:30)
[2019-06-10 06:08] LABS: Hemoglobin 15.1 gm/dl (12.5-18.0); Mean Cell Volume 102.2 fl (78-100); Mean Corpuscular Hemoglobin 33.6 pg (26-32); Mean Corpuscular Hgb Concent. 32.8 g/dl (32-36); Mean Platelet Volume 11.1 fl (6-9.5); Platelet Count 152 K/mm3 (150-450); Red Cell Distribution Width 13.4 % (11.5-14.0); White Blood Count 7.3 K/mm3 (4.0-10.5)
[2019-06-10 06:18] LABS: ANION GAP 9.2 MEQ/L (5-15); BLOOD UREA NITROGEN 22 mg/dL (9-20); CHLORIDE 111 mmol/L (98-107); CK-Creatinine Phosphokinase 337 U/L (55-170); Calcium 9.4 mg/dL (8.4-10.2); Carbon Dioxide 27 mmol/L (22-30); Creatinine 1 1.05 mg/dL (0.66-1.25); Glucose 90 mg/dL (74-106); Potassium 4.3 mmol/L (3.5-5.1); SODIUM 142 mmol/L (137-145)
[2019-06-10 06:55] LABS: Lymphocytes 18 % (24-44); Monocyte 1 % (0.0-12.0); Neutrophils 81 % (36.-66.); Platelet Estimate NORMAL (NORMAL); Total Cells Counted 100
[2019-06-10] MEDS ORDERED: ENOXAPARIN SODIUM SQ SCH (07:30)
[2019-06-10] MEDS ORDERED: ECOTRIN 81 MG PO SCH (07:30)
[2019-06-10] MEDS ORDERED: THERAGRAN MULTIVITAMIN PO SCH (07:30)
[2019-06-10] MEDS: Tessalon Perles 100 MG PO PRN (08:23)
[2019-06-10] MEDS: Colace 100 MG PO SCH (08:23)
[2019-06-10] MEDS: SENOKOT 8.6 MG PO PRN (08:23)
[2019-06-10] MEDS: Mirapex 0.5 MG Tablet PO SCH (08:24)
[2019-06-10] MEDS: PATIENT OWN MEDICATION PO SCH (08:25)
[2019-06-10] MEDS: PROTONIX 40 MG IV IV SCH (08:28)
[2019-06-10] MEDS: Bactroban OINTMENT TP SCH (08:32)
[2019-06-10] MEDS: Sinemet 25/100 MG PO SCH (08:32)
[2019-06-10 08:33] VITALS: BP 168/81; O2SAT 95
--- NOTE | 2019-06-10 09:03 | PCM.DCORD ---
- Discharge Discharge Date: 06/10/19 Disposition: HOME HEALTH SERVICE Condition: Fair Prescriptions: New Benzonatate 200 mg PO TID #60 capsule Docusate Sodium 100 mg [Colace 100 MG] 100 mg PO BID #60 capsule Hydrocodone/Acetaminophen [Hydrocodone-Acetamin 5-325 mg] 1 each PO QID PRN # 28 tablet MDD 4 PRN Reason: Pain Senna 8.6 mg [Senokot 8.6 mg] 8.6 mg PO DAILY PRN PRN #20 tablet PRN Reason: Constipation Continue Simvastatin 20Mg [Zocor 20Mg] 20 mg PO HS Pramipexole Di-HCl 0.5 mg [Mirapex 0.5 MG Tablet] 0.5 mg PO TID Triamterene/Hydrochlorothiazid [Triamterene-Hctz 37.5-25 mg Tb] 1 each PO DAILY Entacapone 200 mg PO QID Carbidopa/Levodopa 25/100 mg [Sinemet 25/100 MG] 1 tab PO QID Multivitamin [Multi-Vitamin Daily] 1 each PO DAILY Aspirin EC 81 mg [Ecotrin 81 mg] 81 mg PO DAILY Doxycycline Hyclate 100 mg PO BID Follow up with: DEEJAY CORRIGAN [CONSULTING PHYSICIAN] - 06/23/19 1:15 pm HAMILTON RAMIREZ [Primary Care Provider] - 1 Week
[2019-06-10] MEDS: DUONEB 0.5-3 MG/3 ml Neb IH SCH (09:05)
[2019-06-10 09:44] VITALS: PULSE 72
--- NOTE | 2019-06-11 13:43 | DS ---
DISCHARGE DIAGNOSES: 1) RHABDOMYOLYSIS. 2) ELEVATED TROPONIN. 3) PNEUMONIA. 4) ACUTE KIDNEY INJURY NOW RESOLVED. 5) PARKINSON'S. 6) HYPOTENSION. 7) HYPERLIPIDEMIA. 8) SKIN TEAR TO THE LEFT LOWER LEG. 9) GAIT INSTABILITY. DISCHARGE PHYSICAL EXAMINATION: VITALS: Temperature current 98.5F, temperature max 98.5F, heart rate 72, respiratory rate 16, blood pressure 168/81. Oxygen saturation 95% on room air. GENERAL: The patient was sitting up in his chair with his son at the bedside. He has a resting tremor, mask-like facies with movements hard to initiate. CVS: He had a regular rate and rhythm. No murmurs, gallops or rubs are appreciated. CHEST: Clear to auscultation bilaterally. No cough was noted. No crackles or wheezes. ABDOMEN: Soft, nontender, nondistended with normal bowel sounds. EXTREMITIES: He has a bandage over his left lower leg skin tear. No clubbing or cyanosis. HOSPITAL COURSE: 1) RHABDOMYOLYSIS: His CPK was found to be 8,865 on admission. It trended down at the time of discharge at 337. The patient was given IV fluids during his hospital stay and was drinking well at the time of discharge. He continues to have some hip pain from a fall so he was given a prescription for hydrocodone to take up to four times a day for seven day's worth as this is all the State will allow me to prescribe. 2) ELEVATED TROPONIN: He had some chest pain earlier on in his hospitalization and his troponin was found to be elevated at 0.085 when it was first checked and then trended down to 0.065. He was able to see his extrusion operator, Dr. Archibald, through tele-medicine consult. He continued his current medications to have him follow up as already scheduled. He was continued on aspirin during his hospitalization. 3) PNEUMONIA: He will take doxycycline as an outpatient and was taking Unasyn as an inpatient and has continued to improve. Will plan to have him finish out his doxycycline that he has at home. 4) ACUTE KIDNEY INJURY ON ADMISSION: His creatinine was 1.55. With IV fluids improved to 1.05 at the time of admission. 5) PARKINSON'S: He was continued on his home medications. 6) HYPOTENSION: His Maxzide was held and plan to restart that at the time of discharge as his blood pressure did become a little bit above normal before discharge. 7) HYPERLIPIDEMIA: He was continued on his home medications. 8) SKIN TEAR: Keep the skin dry and intact. Dr. Richmond had done a culture which was no growth. 9) GAIT INSTABILITY: He had PT consulted. There was some concern about him taking care of himself at home but he adamantly refused any rehab stay and was agreeable to home health care so this was put in place before his discharge. DISCHARGE MEDICATIONS: Please see the discharge order. FOLLOW UP: He is to follow up with myself as well as his extrusion operator, Dr. Archibald. He also sees neurologist, Dr. Bakari Brown. DISPOSITION: The patient was discharged to home in fair condition.
== END 2019-06-10 10:20 | disposition home health service (06) | DRG 557 ==
LOC: ED 14:09 → MED SURG 17:53
PROVIDERS: ADMIT Internal Medicine; ATTEND Internal Medicine
DX: M62.82 Rhabdomyolysis (principal); J18.9 Pneumonia, unspecified organism; N17.9 Acute kidney failure, unspecified; R79.89 Other specified abnormal findings of blood chemistry; G20 Parkinson's disease; I10 Essential (primary) hypertension; I95.9 Hypotension, unspecified; E78.5 Hyperlipidemia, unspecified; M25.552 Pain in left hip; M25.551 Pain in right hip; S81.812A Laceration without foreign body, left lower leg, initial encounter; R26.81 Unsteadiness on feet; W01.0XXA Fall on same level from slipping, tripping and stumbling without subsequent striking against object, initial encounter; Z79.899 Other long term (current) drug therapy
CPT/HCPCS: 36000; 36415; 71045; 73522; 73562; 80048; 80053; 81001; 82550; 83880; 84484; 85025; 87070; 93005; 94640; 94760; 96360; 96365; 97161; 97530; 99285; Q3014; J0295; J1650; J2270; A9270-GY